=== PATIENT | female | born 1930 | race African-American/Black ===

== ENCOUNTER 2016-11-02 14:15 | Emergency (ER) | payer MEDICARE, BC ==
[~2016-11-02] VITALS: Ht 160 cm; Wt 59.8 kg
[~2016-11-02 14:15] MED LIST: ASPI-558 PO; BRIM10DR7 OP; CALC-141 PO; ENOX30DI4 SQ; FERR324T8 PO; HYDR12.512 PO; LISI-126 PO; ONDA4TAB40 PO; PANT40TA32 PO; SIMV20TA89 PO; TIMO15DR19 OP; UBID100C18 PO; VITA1TAB61 PO; [UNRECOGNIZED DRUG - CODE] PO; [UNRECOGNIZED DRUG - CODE] PO; [UNRECOGNIZED DRUG - CODE] PO
[2016-11-02 14:17] VITALS: TEMP 97.4; Ht 160 cm; Wt 59.8 kg
--- NOTE | 2016-11-02 14:17 | NUR ---
PROVIDER/RT DR. PRICE AND RT PRESENT ON PT'S ARRIVAL TO DEPT.
[2016-11-02] MEDS ORDERED: NORMAL SALINE 1,000 ML IV ONE ×2 (14:24→16:00)
[2016-11-02] MEDS ORDERED: NITROGLYCERIN 0.4 MG SUBLINGUAL TABLET SL PRN (14:30)
[2016-11-02] MEDS ORDERED: ASPIRIN 81 MG CHEWABLE TABLET PO ONE (14:30)
--- OUTSIDE RECORDS SUMMARY | 2016-11-02 14:42 | XMS REPORT | Referral Summary ---
Author Author [facility] Organization [facility] Address Unknown Phone Unavailable Care Team Providers Care Dental Prosthetist Name Role Phone BrenkaitlinPatsy Primary Care Physician [phone] Encounter [facility] [id number] Date(s): 01/12/15 - 01/12/15 [facility] [address] [place] [address] [place] [id number]- Discharge Diagnosis: Essential hypertension Discharge Diagnosis: Anemia of chronic illness Discharge Diagnosis: Age related osteoporosis Discharge Diagnosis: Hearing impairment Discharge Diagnosis: Bilateral hand pain Discharge Disposition: 01-Home or Self Care Attending Physician: Thiago Flores MD Admitting Physician: Thiago Flores MD Vital Signs Most recent to 1 oldest [Reference Range]: Temperature Tympanic 36.1 degC [36.6-38.1 degC] *LOW* (01/12/15 10:14 AM) Peripheral Pulse 70 bpm Rate [60-100 bpm] (01/12/15 10:14 AM) Respiratory Rate 16 br/min [14-20 br/min] (01/12/15 10:14 AM) Blood Pressure 118/68 mmHg [90-140/60-90 mmHg] (01/12/15 10:14 AM) SpO2 97 % (01/12/15 10:14 AM) Problem List Condition Effective Dates Status Health Status Informant Cataracts(Confirmed) Active 1 Fracture-Rt 2011 Active hip(Confirmed)2 Glaucoma(Confirmed) Active Hearing Active loss(Confirmed) Menopausal Active symptoms(Confirmed)3 Osteoporosis(Confirm Active ed) Overweight(Confirmed Active ) 1removed 2Rt femoral head replacement 3see conversion document Allergies, Adverse Reactions, Alerts Substance Reaction Severity Status sulfamethoxazole Nausea/Vomiting Active trimethoprim Nausea/Vomiting Active Medications aspirin 81 mg oral tablet 81 mg 1 tabs, Oral, Daily, # 30 tabs, 0 Refill(s) Start Date: 01/12/15 Status: Ordered Fosamax 70 mg oral tablet See Instructions, TAKE 1 TABLET BY MOUTH ONCE WEEKLY BEFORE BREAKFAST, ON AN EMPTY STOMACH: REMAIN UPRIGHT FOR 30 MINUTES, # 12 tabs, eRx: [facility] # [id number], TAKE 1 TABLET BY MOUTH ONCE WEEKLY BEFORE BREAKFAST, ON AN EMPTY STOMACH : REMAIN UPRIG... Start Date: 05/24/15 Status: Ordered hydrochlorothiazide 25 mg oral tablet See Instructions, TAKE ONE-HALF TABLET BY MOUTH EVERY DAY, # 45 tabs, eRx: [facility] #[id number], TAKE ONE-HALF TABLET BY MOUTH EVERY DAY Start Date: 06/03/15 Status: Ordered lisinopril 20 mg oral tablet See Instructions, TAKE ONE TABLET BY MOUTH EVERY DAY, # 90 tabs, eRx: [facility] #[id number], TAKE ONE TABLET BY MOUTH EVERY DAY Start Date: 05/12/15 Status: Or[place] [facility] [place] See Instructions, Bromonidine 0.2 % Eye drops 1 drop in each eye in the a.m. and the p.m., 0 Refill(s) Start Date: 01/12/15 Status: Ordered timolol 0.5% ophthalmic solution 1 drops, Eye-Both, Daily, # 5 mL, 0 Refill(s) Start Date: 01/12/15 Status: Ordered Vitamin D3 1000 intl units oral tablet 1,000 Intl_Units 1 tabs, Oral, Daily, # 30 tabs, 0 Refill(s) Start Date: 01/12/15 Status: Ordered Results No data available for this section Immunizations Vaccine Date Refusal Reason influenza virus vaccine, inactivated 04/28/15 influenza virus vaccine, inactivated1 04/22/14 influenza virus vaccine, live 05/29/13 influenza virus vaccine, live 05/01/11 pneumococcal 23-polyvalent vaccine 07/15/94 tetanus-diphth toxoids (Td) adult/adol 06/23/98 1Location History: See scanned document Procedures Procedure Date Related Diagnosis Body Site Right femoral head replacement replacement 2011 Left Cataract extraction and insertion of 2007 intraocular lens1 Vaginal hysterectomy with anterior and 2007 posterior repair2 Right Cataract extraction and insertion of 2001 intraocular lens3 Dilatation and curettage 1964 Radiation therapy to uterine fibroids 1960 1Left 2Vaginal hysterectomy with anterior and posterior repair 3Right Social History Social History Type Response Smoking Status Never smoker Assessment and Plan Extracted from: Title: Ambulatory Patient Education Author: Thiago Flores MD Date: Family Medicine Hypertension As your heart beats, it forces blood through your arteries. This force is your blood pressure. If the pressure is too high, it is called hypertension (HTN) or high blood pressure. HTN is dangerous because you may have it and not know it. High blood pressure may mean that your heart has to work harder to pump blood. Your arteries may be narrow or stiff. The extra work puts you at risk for heart disease, stroke, and other problems. Blood pressure consists of two numbers, a higher number over a lower, 110/72, for example. It is stated as "110 over 72." The ideal is below 120 for the top number (systolic ) and under 80 for the bottom (diastolic ). Write down your blood pressure today. You should pay close attention to your blood pressure if you have certain conditions such as: Heart failure. Prior heart attack. Diabetes Chronic kidney disease. Prior stroke. Multiple risk factors for heart disease. To see if you have HTN, your blood pressure should be measured while you are seated with your arm held at the level of the heart. It should be measured at least twice. A one-time elevated blood pressure reading (especially in the Emergency Department) does not mean that you need treatment. There may be conditions in which the blood pressure is different between your right and left arms. It is important to see your caregiver soon for a recheck. Most people have essential hypertension which means that there is not a specific cause. This type of high blood pressure may be lowered by changing lifestyle factors such as: Stress. Smoking. Lack of exercise. Excessive weight. Drug/tobacco/alcohol use. Eating less salt. Most people do not have symptoms from high blood pressure until it has caused damage to the body. Effective treatment can often prevent, delay or reduce that damage. TREATMENT When a cause has been identified, treatment for high blood pressure is directed at the cause. There are a large number of medications to treat HTN. These fall into several categories, and your caregiver will help you select the medicines that are best for you. Medications may have side effects. You should review side effects with your caregiver. If your blood pressure stays high after you have made lifestyle changes or started on medicines, Your medication(s) may need to be changed. Other problems may need to be addressed. Be certain you understand your prescriptions, and know how and when to take your medicine. Be sure to follow up with your caregiver within the time frame advised ( usually within two weeks) to have your blood pressure rechecked and to review your medications. If you are taking more than one medicine to lower your blood pressure, make sure you know how and at what times they should be taken. Taking two medicines at the same time can result in blood pressure that is too low. SEEK IMMEDIATE MEDICAL CARE IF: You develop a severe headache, blurred or changing vision, or confusion. You have unusual weakness or numbness, or a faint feeling. You have severe chest or abdominal pain, vomiting, or breathing problems. MAKE SURE YOU: Understand these instructions. Will watch your condition. Will get help right away if you are not doing well or get worse. Document Released: 07/02/2006 Document Revised: 09/23/2012 Document Reviewed: [employer] Patient Information 2014 [facility]. Follow Up With: Where: When: Thiago Flores [address] [place] [address] Drive; [place] [address] Business (1) In 4 months 05/14/2015 Comments: Extracted from: Title: Office Visit Note Author: Thiago Flores MD Date: 01/12/15 Assessment/Plan Age related osteoporosis She is due for repeat bone densitometry after June 17, 2015. Anemia of chronic illness CBC will be checked. Bilateral hand pain Sedimentation rate and C-reactive protein will be checked. Essential hypertension Comprehensivemetabolic profile will be scheduled. Hearing impairment She continues with her hearing aid. Orders: alendronate, See Instructions, TAKE 1 TABLET BY MOUTH ONCE WEEKLY BEFORE BREAKFAST, ON AN EMPTY STOMACH: REMAIN UPRIGHT FOR 30 MINUTES, # 12 tabs , eRx: [facility] #[id number], TAKE 1 TABLET BY MOUTH ONCE WEEKLY BEFORE BREAKFAST, ON AN EMPTY STOMACH: REMAIN UPRIG...
--- OUTSIDE RECORDS SUMMARY | 2016-11-02 14:42 | XMS REPORT | Continuity of Care Document ---
Author Author [facility] Organization [facility] Address Unknown Phone Unavailable Allergies Medications Problems Procedures Results Encounters ACCT No. Visit Date/Time Discharge Status Pt. Type Provider Facility Loc./Unit Complaint [id number] 10/15/2013 11:15:00 10/15/2013 23 :59:59 CLS Outpatient
--- OUTSIDE RECORDS SUMMARY | 2016-11-02 14:42 | XMS REPORT | Referral Summary ---
Author Author [facility] Organization [facility] Address Unknown Phone Unavailable Care Team Providers Care Fire Prevention Forester Name Role Phone Jessica Flores Primary Care Physician [phone] Encounter Date(s): 04/28/15 - 04/28/15 [facility] [address] [place] [address] [place] [id number]- Discharge Disposition: 01-Home or Self Care Attending Physician: Thiago Flores MD Admitting Physician: Thiago Flores MD Vital Signs No data available for this section Problem List No data available for this section Allergies, Adverse Reactions, Alerts Substance Reaction Severity [...] FOR 30 MINUTES, # 12 tabs, eRx: [facility] # [id number], TAKE 1 TABLET BY MOUTH ONCE WEEKLY BEFORE BREAKFAST, ON AN EMPTY STOMACH : REMAIN UPRIG... Start Date: 01/12/15 Status: Ordered hydrochlorothiazide 25 mg oral tablet See Instructions, TAKE ONE-HALF TABLET BY MOUTH EVERY DAY, # 45 tabs, eRx: [facility] #[id number], TAKE ONE-HALF TABLET BY MOUTH EVERY DAY Start Date: 01/26/15 Status: Ordered lisinopril 20 mg oral tablet 20 mg 1 tabs, Oral, Daily, # 30 tabs, 0 Refill(s) Start Date: 01/12/15 Status: Ordered Misc Prescription See Instructions, Bromonidine 0.2 % Eye [...] live 05/29/13 influenza virus vaccine, live 05/01/11 tetanus-diphth toxoids (Td) adult/adol 06/23/98 1Location History: See scanned document Procedures Procedure Date Related Diagnosis Body Site Right femoral head replacement replacement 2011 Left Cataract extraction and insertion of 2007 intraocular lens1 Vaginal hysterectomy with anterior and 2007 posterior repair2 Right Cataract extraction and insertion of 2001 intraocular lens3 Dilatation and curettage 1963 Radiation therapy to uterine fibroids 1959 1Left 2Vaginal hysterectomy with anterior and posterior repair 3Right Social History Social History Type Response Smoking Status Never smoker Assessment and Plan No data available for this section
--- OUTSIDE RECORDS SUMMARY | 2016-11-02 14:42 | XMS REPORT | Referral Summary ---
Author Author [facility] Organization [facility] Address Unknown Phone Unavailable Care Team Providers Care Top Lift And Automatic Window Repairer Name Role Phone JefritaPatsy Primary Care Physician [phone] Encounter [facility] [id number] Date(s): 04/28/15 - 04/28/15 [facility] [address] [place] [address] [place] [id number]- Discharge Disposition: 01-Home or Self Care Attending Physician: Thigao Flores MD Admitting Physician: Thiago Flores MD Vital Signs No data available for this section Problem List Condition Effective Dates Status Health [...] FOR 30 MINUTES, # 12 tabs, eRx: [facility] # [id number], TAKE 1 TABLET BY MOUTH ONCE WEEKLY BEFORE BREAKFAST, ON AN EMPTY STOMACH : REMAIN UPRIG... Start Date: 05/24/15 Status: Ordered hydrochlorothiazide 25 mg oral tablet See Instructions, TAKE ONE-HALF TABLET BY MOUTH EVERY DAY, # 45 tabs, eRx: [facility] #[id number], TAKE ONE-HALF TABLET BY MOUTH EVERY DAY Start Date: 06/03/15 Status: Ordered lisinopril 20 mg oral tablet See Instructions, TAKE ONE TABLET BY MOUTH EVERY DAY, # 90 tabs, eRx: [facility] #[id number], TAKE ONE TABLET BY MOUTH EVERY DAY Start Date: 05/12/15 Status: Ordered [facility] [place] See Instructions, Bromonidine 0.2 % Eye [...] curettage 1963 Radiation therapy to uterine fibroids 1960 1Left 2Vaginal hysterectomy with anterior and posterior repair 3Right Social History Social History Type Response Smoking Status Never smoker Assessment and Plan No data available for this section
--- NOTE | 2016-11-02 14:44 | NUR ---
FAMILY PT'S NIECE, WHO IS ALSO DPOA, AT BEDSIDE AT THIS TIME.
[2016-11-02] MEDS ORDERED: SODIUM BICARBONATE IV ONE ×2 (14:45→17:34)
[2016-11-02 14:48] LABS: BLOOD, URINE TRACE-LYSED (NEGATIVE); COLOR,URINE YELLOW (YELLOW); LEUKOCYTE ESTERASE ,URINE NEGATIVE (NEGATIVE); NITRITE,URINE NEGATIVE (NEGATIVE); UROBILINOGEN,URINE 0.2 EU/DL (NORMAL)
--- NOTE | 2016-11-02 14:48 | NUR ---
XRAY PORTABLE XRAY AT BEDSIDE.
[2016-11-02 14:49] LABS: BASOPHILS % (AUTO) 0.4 % (0-2); EOSINOPHILS # (AUTO) 0.2 T/MM3 (0-0.5); EOSINOPHILS % (AUTO) 3.2 % (0-4); HCT - HEMATOCRIT 46.8 % (36-46); HGB - HEMOGLOBIN 14.5 GM/DL (12-16); LYMPHOCYTES % (AUTO) 80.8 % (23-45); MEAN CORPUSCULAR HGB 29.1 UUG (26-34); MEAN CORPUSCULAR VOLUME 93.8 UM3 (80-100); MEAN PLATELET VOLUME 10.3 UM3 (9.4-12.4); MONOCYTES # (AUTO) 0.2 T/MM3 (0-0.8); MONOCYTES % (AUTO) 3.6 % (0-9.0); NEUTROPHILS #(AUTO)-ABSOLUTE 0.6 T/MM3 (1.8-7.7); RED BLOOD COUNT 4.99 M/MM3 (4.00-5.20)
--- OUTSIDE RECORDS SUMMARY | 2016-11-02 14:51 | XMS REPORT | Continuity of Care Document ---
Author Author [facility] Organization [facility] Address Unknown Phone Unavailable Allergies Medications Problems Procedures Results Encounters ACCT No. Visit Date/Time Discharge Status Pt. Type Provider Facility Loc./Unit Complaint [id number] 10/15/2013 11:15:00 10/15/2013 23 :59:59 CLS Outpatient
[2016-11-02 14:53] LABS: ALBUMIN 3.4 G/DL (3.5-5.0); ALKALINE PHOSPHATASE 62 U/L (38-126); ALT (SGPT) 107 U/L (9-52); ANION GAP 28 MEQ/L (5-15); AST (SGOT) 181 U/L (14-36); BUN/CREATININE RATIO 9 RATIO (6-26); CALCIUM 9.8 MG/DL (8.4-10.2); CHLORIDE 105 MEQ/L (98-107); CO2 - CARBON DIOXIDE 16 MEQ/L (22-30); CREATININE 1.4 MG/DL (0.7-1.2); GLOMERULAR FILTRATION RATE 35; GLUCOSE 193 MG/DL (65-110); POTASSIUM 4.4 MEQ/L (3.6-5); SODIUM 149 MEQ/L (134-144); TOTAL PROTEIN 6.9 G/DL (6.3-8.2)
--- NOTE | 2016-11-02 14:54 | NUR ---
STATUS PT HAS HAD THREE EPISODES OF SMALL, FULL BODY TREMORS THAT HAVE LASTED LESS THAN [address] PRICE NOTIFIED, AND IS AT BEDSIDE TO RE-EXAMINE PT.
--- NOTE | 2016-11-02 15:00 | DI ---
Indication: ITS.REASON: code blue, ET tube placement PROCEDURE: CHEST 1 VIEW: Encounter: Initial Comparison: May 01, 2012 Findings: Endotracheal tube is in place with the tip projecting 4.8 cm above the jose l. Overlying defibrillator paddle and multiple overlying monitoring leads. No obvious pneumothorax or pleural effusion on this supine view. There are scattered patchy airspace and interstitial opacities in both lungs, greater on the right side. Heart size and mediastinal contours are normal. Impression: 1. Endotracheal tube appears in appropriate position. 2. Bilateral airspace disease could be due to pneumonia, massive aspiration or edema. .
[2016-11-02 15:02] LABS: INR 1.05 (0.76-1.04); PROTHROMBIN TIME 11.4 SEC (9.31-12.49)
[2016-11-02 15:05] LABS: PROBNP 588 PG/ML (0-175)
--- NOTE | 2016-11-02 15:10 | NUR ---
STATUS PT HAS DEEP, NON-LABORED SPONTANEOUS CHEST RISE AND FALL MAINTAINING SPO2 GREATER THAN 93%. RT AT BEDSIDE TO ASSIST WITH VENTILATIONS PRN.
[2016-11-02 15:18] LABS: AMPHETAMINE SCREEN,URINE NEGATIVE; BARBITURATE SCREEN,URINE NEGATIVE; BENZODIAZEPINES SCREEN,URINE NEGATIVE; CANNABINOID SCREEN,URINE NEGATIVE; COCAINE SCREEN,URINE NEGATIVE; METHADONE SCREEN, URINE NEGATIVE; METHAMPHETAMINE SCREEN, URINE NEGATIVE; OPIATE SCREEN,URINE NEGATIVE; PHENCYCLIDINE SCREEN,URINE NEGATIVE; TRICYCLIC ANTIDEPRESSANT,URINE NEGATIVE
--- NOTE | 2016-11-02 15:39 | NUR ---
OXYGEN STATUS DPOA REQUESTS TO MONITOR PT'S BREATHING ON RA. RT AT BEDSIDE, REMOVES BLOW BY WITH ET TUBE STILL IN PLACE. SPO2 NOTED TO BE 86% ON RA. DPOA REQUESTS NO FURTHER INTERVENTION AT THIS TIME.
--- NOTE | 2016-11-02 15:44 | NUR ---
OXYGEN SPO2 READS 76%. RT REMAINS AT BEDSIDE. DPOA CONTINUES TO REQUEST NO INTERVENTION. DR. PRICE NOTIFIED. PT DOES NOT APPEAR TO BE IN ANY DISTRESS WITH BREATHING. VERBAL ORDERS REC'D TO ADM 2MG ATIVAN IV PER DR. PRICE FOR COMFORT AT THIS TIME.
[2016-11-02] MEDS ORDERED: LORAZEPAM 2 MG/ML INJECTION IV ONE (15:45)
[2016-11-02 16:15] VITALS: BP 113/63
--- NOTE | 2016-11-02 16:15 | NUR ---
STATUS BP READS 113/63 WITH SPO2 OF 24%. RESPIRATIONS CONTINUE TO BE SPONTANEOUS; HOWEVER, ARE SHALLOW. DR. PRICE NOTIFIED.
[2016-11-02 16:20] VITALS: PULSE 0; RESP 0; O2SAT 0
--- NOTE | 2016-11-02 16:20 | NUR ---
SUMMARY INTERVENTIONS CONTINUED AFTER PT ARRIVED TO ED UNTIL DPOA ARRIVES TO RM. PT ALLOWED TO REMAIN IN RM WITH PT, AND REQUESTS NO FURTHER INTERVENTION BE PERFORMED WITH DISCUSSION WITH DR. PRICE. COMFORT CARE MEASURES INITIATED. GRADUAL DECLINE IN STATUS MONITORED. TOD CALLED PER DR. PRICE AT 1620.
--- NOTE | 2016-11-02 16:25 | ERPDOC ---
Departure Disposition Decision Date: Nov 02, 2016 Disposition Decision Time: 17:55 Disposition: 20 Impression Impression Impression: Primary Impression: Respiratory failure Severity: Critical Condition: Seen By: Physician only Problems/Meds/Labs Reviewed?: No Medications reviewed and manag: No Follow up care ordered?: No Mental Status: Confused HPI - General Medical General Chief Complaint: Resuscitation Stated Complaint: CODE BLUE Time Seen by Provider: 14:23 HPI - General Medical Initial Comments 86-year-old female brought in by EMS. Patient triggered her rescue button. When EMS arrived, she was found down and nonresponsive. She had no pulse and was not breathing. CPR was started, a family member showed up and stated the patient had DO NOT RESUSCITATE orders, but had no paperwork available. EMS was obligated to continue CPR, they cooperated with the family member, and patient was brought to [facility]. Family member followed and was able to get DPOA paperwork. In the meantime, patient was delivered to the hospital having returned to spontaneous heartbeat with strong pulse approximately 90-100 bpm. ABG was obtained, pH was noted to be 6.8, 1 amp of bicarbonate was given. There was no CPR performed by the time EMS arrived hospital or after they arrived. Family member was brought back and given an explanation of what had occurred and the option to direct care. She asked that patient continued to be bagged and continued to have supplemental oxygen and breathing treatments supplied while she thought through what to do. We had a long discussion between she and I as we discussed the patient's situation. She had no corneal reflex at this time, and had no gag reflex. She did chew with the tube occasionally. Another family member was brought back, they both spent several minutes speaking with the patient and trying to get a response but were unable to get a response. Ultimately they requested that we stop support. IV fluid was clamped, patient was placed on room air with blow-by on the ET tube. A "T" tube was attached to accomplish this. At 1620, spontaneous heart rate ceased and patient went into asystole. Time of was called at 1620. Greater than 40 minutes was spent in resuscitation and critical care of this patient. Family was allowed time with the patient, ultimately the lace machine operator's office was contacted and cleared the body. Allergies: Coded Allergies: No Known Drug Allergies (Verified Allergy, Unknown, 11/02/16) Past History Past Medical History Metabolic: hypercholesterolemia, hypertension ENMT: glaucoma Vaccines Hx Influenza Vaccination: Yes (last flu vaccination 04/29/2012) Hx Pneumococcal Vaccination: No Physical Exam General Vitals and Pain First Documented Vital Signs Date Time Temp Pulse Resp B/P Pulse Ox O2 Delivery O2 Flow Rate FiO2 11/02/16 14:17 97.4 144 0 185/115 98 Ambu-Bag Weight: Kilograms: 59.800 Height (feet): 5 Height (inches): 3.00 Triage Pain Scale: Progress Results/Orders Orders Procedure Category Date Status Time Cbc W/Auto LAB 11/02/16 Complete Diff-Reflex Manual 14:24 Cmp - Comprehensive LAB 11/02/16 Complete Metabolic 14:24 Probnp LAB 11/02/16 Complete 14:24 Troponin I W LAB 11/02/16 Complete Hemolysis Index 14:24 INR LAB 11/02/16 Complete 14:24 Drug Screen LAB 11/02/16 Complete [place] [facility] [place] Ua, Dip Wreflex LAB 11/02/16 Complete Microsc & Assessment Nurse Practitioner 14:24 D-Dimer LAB 11/02/16 Complete 14:24 EKG EKG 11/02/16 Logged 14:24 Chest 1 View RAD 11/02/16 Resulted 14:24 Iv Lock (Ed Only) EDM 11/02/16 Transmitted 14:24 [place] (Ed) EDM 11/02/16 Transmitted 14:24 Normal Saline (Normal PHA 11/02/16 Complete Saline Iv) 14:24 Aspirin (Asa) PHA 11/02/16 Complete 14:30 Nitroglycerin PHA 11/02/16 In Process (Nitrostat) 14:30 Lactate - Lactic Acid LAB 11/02/16 Complete Catheter Needs JHONNY 11/02/16 In Process Assessment 14:24 Bladder Scanner (Ed) EDM 11/02/16 Transmitted 14:24 Lactate - Lactic Acid LAB 11/02/16 Logged 18:54 Blood Culture DOUG 11/02/16 In Process Sodium Bicarb. PHA 11/02/16 Complete Syringe - Adult 14:45 Diazepam (Valium) PHA 11/02/16 Complete 15:00 Blood Gas, Arterial - LAB 11/02/16 Complete ABG 14:25 Lorazepam (Ativan) PHA 11/02/16 Complete 15:45 Normal Saline (Normal PHA 11/02/16 In Process Saline Iv) 16:00 Sodium Bicarb. PHA 11/02/16 Complete Syringe - Adult 17:34 Lab Results Laboratory Tests Test 11/02/16 14:25 11/02/16 14:34 11/02/16 14:35 11/02/16 15:03 Arterial Blood pH 6.810 Arterial Blood Partial Pressure CO2 59MMHG Arterial Blood pO2 at Patient Temp 262MMHG Arterial Blood HCO3 9MEQ/L Arterial Blood Total CO2 11.2MEQ/L Arterial Blood Oxygen Saturation 100.0% Arterial Blood Base Excess -25.1MMOL/L Oxygen Delivery Method (LAB) Ambu-bag, % Blood Gas Oxygen Liter Flow Blood Gas Oxygen Percent Given 100 Blood Gas Vent Rate Blood Gas Tidal Volume ML White Blood Count 5.0T/MM3 Red Blood Count 4.99M/MM3 Hemoglobin 14.5GM/DL Hematocrit 46.8% Mean Corpuscular Volume 93.8UM3 Mean Corpuscular Hemoglobin 29.1UUG Mean Corpuscular Hemoglobin Concent 31.0GM/DL RDW Standard Deviation 46.1FL Platelet Count 128T/MM3 Mean Platelet Volume 10.3UM3 Immature Granulocyte % (Auto) 0.0% Neutrophils (%) (Auto) 12.0% Lymphocytes (%) (Auto) 80.8% Monocytes (%) (Auto) 3.6% Eosinophils (%) (Auto) 3.2% Basophils (%) (Auto) 0.4% Absolute Immature Granulocyte (auto 0.00T/MM3 Absolute Neutrophils (auto) 0.6T/MM3 Absolute Lymphocytes (auto) 4.0T/MM3 Absolute Monocytes (auto) 0.2T/MM3 Absolute Eosinophils (auto) 0.2T/MM3 Absolute Basophils (auto) 0.0T/MM3 Prothromb Time International Ratio 1.05 D-Dimer 02130PM/ML Turbidity < 20 Sodium Level 149MEQ/L Potassium Level 4.4MEQ/L Chloride Level 105MEQ/L Carbon Dioxide Level 16MEQ/L Anion Gap 28MEQ/L Blood Urea Nitrogen 13.0MG/DL Creatinine 1.4MG/DL Glomerular Filtration Rate Calc 35 BUN/Creatinine Ratio 9RATIO Glucose Level 193MG/DL Calculated Osmolality 291MOSM/KG Calcium Level 9.8MG/DL Total Bilirubin 0.50MG/DL Icterus Index < 2 Aspartate Amino Transf (AST/SGOT) 181U/L Alanine Aminotransferase (ALT/SGPT) 107U/L Alkaline Phosphatase 62U/L Troponin I < 0.012ng/ml IQ-Rbp-R-Type Natriuretic Peptide 588PG/ML Total Protein 6.9G/DL Albumin 3.4G/DL Globulin 3.5G/DL Albumin/Globulin Ratio 1.0RATIO Chemistry Specimen Hemolysis 47 Urine Collection Type Straight cath Urine Color Yellow Urine Turbidity Clear Urine pH 5.5 Urine Specific [place] <=1.005 Urine Protein Negative Urine Glucose (UA) Negative Urine Ketones Negative Urine Blood Trace-lysed Urine Nitrite Negative Urine Bilirubin Negative Urine Urobilinogen 0.2EU/DL Urine Leukocyte Esterase Negative Urinalysis Comment Microscopic not ind. Urine Opiates Screen NegativeNG/ML Urine Oxycodone Screen NegativeNG/ML Urine Methadone Screen NegativeNG/ML Urine Propoxyphene Screen NegativeNG/ML Urine Barbiturates Screen NegativeNG/ML Urine Tricyclic Antidepressants NegativeNG/ML Urine Phencyclidine Screen NegativeNG/ML Urine Amphetamines Screen NegativeNG/ML Urine Methamphetamines Screen NegativeNG/ML Urine Benzodiazepines Screen NegativeNG/ML Urine Cocaine Screen NegativeNG/ML Urine Cannabinoids Screen NegativeNG/ML Plasma Lactate 14.1MMOL/L Test 11/02/16 15:25 Lab Scanned Report REFERENCE [id number] Medications Current ED Medications Sodium Chloride (Normal Saline IV) 1,000 ml @ 1,000 mls/hr Q1H ONCE IV ; Start 11/02/16 at 14:24; Stop 11/02/16 at 15:23; Status DC Aspirin (ASA) 324 mg O ONCE PO ; Start 11/02/16 at 14:30; Stop 11/02/16 at 14: 31; Status DC Nitroglycerin (Nitrostat) 0.4 mg Q5MIN PRN SL CHEST PAIN; Start 11/02/16 at 14: 30 Sodium Bicarbonate (Sodium Bicarb. Syringe - Adult) 50 meq O ONCE IV Last administered on 11/02/16 14:38; Start 11/02/16 at 14:45; Stop 11/02/16 at 14:46 ; Status DC Diazepam (Valium) 5 mg O ONCE IV Last administered on 11/02/16 15:00; Start 11/02/16 at 15:00; Stop 11/02/16 at 15:01; Status DC Lorazepam 2 mg 2 mg O ONCE IV Last administered on 11/02/16 15:51; Start at 15:45; Stop 11/02/16 at 15:47; Status DC Sodium Chloride (Normal Saline IV) 1,000 ml @ 150 mls/hr Q6H40M ONCE IV Last administered on 11/02/16 15:10; Start 11/02/16 at 16:00; Stop 11/02/16 at 22:39 Sodium Bicarbonate (Sodium Bicarb. Syringe - Adult) 50 meq STK-MED ONCE IV ; Start 11/02/16 at 17:34; Stop 11/02/16 at 17:35; Status DC Progress Progress Time of called at 1620 p.m. 86-year-old female brought in by EMS. Patient triggered her rescue button. When EMS arrived, she was found down and nonresponsive. She had no pulse and was not breathing. CPR was started, a family member showed up and stated the patient had DO NOT RESUSCITATE orders, but had no paperwork available. EMS was obligated to continue CPR, they cooperated with the family member, and patient was brought to [facility]. Family member followed and was able to get DPOA paperwork. In the meantime, patient was delivered to the hospital having returned to spontaneous heartbeat with strong pulse approximately 90-100 bpm. ABG was obtained, pH was noted to be 6.8, 1 amp of bicarbonate was given. There was no CPR performed by the time EMS arrived hospital or after they arrived. Family member was brought back and given an explanation of what had occurred and the option to direct care. She asked that patient continued to be bagged and continued to have supplemental oxygen and breathing treatments supplied while she thought through what to do. We had a long discussion between she and I as we discussed the patient's situation. She had no corneal reflex at this time, and had no gag reflex. She did chew with the tube occasionally. Another family member was brought back, they both spent several minutes speaking with the patient and trying to get a response but were unable to get a response. Ultimately they requested that we stop support. IV fluid was clamped, patient was placed on room air with blow-by on the ET tube. A "T" tube was attached to accomplish this. At 1620, spontaneous heart rate ceased and patient went into asystole. Time of was called at 1620. Greater than 40 minutes was spent in resuscitation and critical care of this patient. Family was allowed time with the patient, ultimately the lace machine operator's office was contacted and cleared the body. PAEMLA PRICE MD Nov 02, 2016 16:25
--- NOTE | 2016-11-02 17:32 | NUR ---
HAND HARDENER ARRIVED TO AT THIS TIME.
--- NOTE | 2016-11-02 17:53 | NUR ---
INVASIVE LINES/BELONGINGS ET TUBE, IO, AND PERIPHERAL LINES REMOVED AFTER CLEARANCE OF LEG BREAKER PER FAMILY REQUEST. MEDICAL ALARM NECKLACE REMOVED AND SENT WITH NIECE. NO OTHER BELONGINGS NOTED.
--- NOTE | 2016-11-02 18:35 | NUR ---
BODY RELEASED TO [facility] AT THIS TIME.
--- NOTE | 2016-11-03 17:53 | NUR ---
Note eri in EDM - 11/04/16 at 0939 by OMID INVASIVE LINES/BELONGINGS ET TUBE, IO, AND PERIPHERAL LINES REMOVED AFTER CLEARANCE OF MRP CONTROLLER PER FAMILY REQUEST. MEDICAL ALARM NECKLACE REMOVED AND SENT WITH DHEERAJ. NO OTHER BELONGINGS NOTED.
== END 2016-11-02 16:20 | disposition expired ==
LOC: ED 14:15
DX: R09.2 Respiratory arrest (principal); E78.00 Pure hypercholesterolemia, unspecified; I10 Essential (primary) hypertension; Z79.82 Long term (current) use of aspirin; Z79.899 Other long term (current) drug therapy; Z79.01 Long term (current) use of anticoagulants
CPT/HCPCS: 36415; 51702; 71010; 80053; 80306; 81003; 82803; 83605; 83880; 84484; 85025; 85379; 85610; 87040; 93005; 96361; 96374; 96375; 99291; J2060; J3360; J7030